=== PATIENT | female | born 1990 | race African-American/Black ===

== ENCOUNTER 2019-12-23 12:23 | Emergency (ER) | payer MEDICAID, OTHER ==
[~2019-12-23] VITALS: Ht 165.1 cm; Wt 47.6 kg
[2019-12-23 12:43] VITALS: BP 100/67
== END 2019-12-23 16:05 | disposition home or self-care (01) ==
LOC: ER 12:23
DX: J06.9 Acute upper respiratory infection, unspecified (principal); R51 Headache; F17.210 Nicotine dependence, cigarettes, uncomplicated; Z98.51 Tubal ligation status